=== PATIENT | female | born 1990 | race Caucasian/White ===

== ENCOUNTER 2018-05-24 16:34 | Emergency (ER) | payer SELFPAY ==
[~2018-05-24] VITALS: Ht 170.2 cm; Wt 77.0 kg
[2018-05-24 16:38] VITALS: BP 103/54
== END 2018-05-24 17:39 | disposition left against medical advice (07) ==
LOC: ER 16:34
DX: R10.9 Unspecified abdominal pain (principal); R11.10 Vomiting, unspecified; Z53.21 Procedure and treatment not carried out due to patient leaving prior to being seen by health care provider